=== PATIENT | male | born 1935 | race Caucasian/White ===

== ENCOUNTER 2018-12-12 14:52 | Emergency (ER) | payer MEDICARE, OTHER ==
[~2018-12-12] VITALS: Ht 172.7 cm; Wt 68.0 kg
[~2018-12-12 14:52] MED LIST: ZITHROMAX250 MG PO
== END 2018-12-12 17:10 | disposition home or self-care (01) ==
LOC: ED 14:52
DX: R26.9 Unspecified abnormalities of gait and mobility (principal); F17.200 Nicotine dependence, unspecified, uncomplicated
CPT/HCPCS: 70450; 99284-25